=== PATIENT | female | born 1995 | race Asian ===

== ENCOUNTER 2016-11-25 13:32 | Emergency (ER) | payer OTHER ==
[~2016-11-25] VITALS: Ht 154.9 cm; Wt 53.1 kg
[2016-11-25 14:17] VITALS: BP 120/75
== END 2016-11-25 15:44 | disposition home or self-care (01) ==
LOC: ER 13:37 → EDSEX 13:37 → ER 15:44
DX: S01.511A Laceration without foreign body of lip, initial encounter (principal); S80.02XA Contusion of left knee, initial encounter; V53.9XXA Unspecified occupant of pick-up truck or van injured in collision with car, pick-up truck or van in traffic accident, initial encounter; Y93.89 Activity, other specified; Y92.89 Other specified places as the place of occurrence of the external cause; Y99.8 Other external cause status
CPT/HCPCS: 12011; 29505